=== PATIENT | male | born 1945 | race Caucasian/White ===

== ENCOUNTER 2021-12-05 14:39 | Inpatient (IN) | payer MEDICARE ==
[2021-12-05 16:20] LABS: Hemoglobin 12.1 g/dL (13.5-17.5); Mean Corpuscular Hemoglobin 30.7 pg (27.0-33.0); Mean Corpuscular Volume 90.4 fl (81.2-95.1); Platelet Count 208 10x3/uL (150-450); RBC Distribution Width 12.6 % (11.5-14.5); Red Blood Cell (RBC) Count 3.94 10x6/uL (4.32-5.72); White Blood Cell (WBC) Count 29.9 10x3/uL (3.5-10.5)
[2021-12-05 16:23] LABS: ALT (SGPT) 78 U/L (8-55); AST (SGOT) 25 U/L (5-34); Albumin 3.3 g/dL (3.4-4.8); Alkaline Phosphatase 163 U/L (40-110); Anion Gap 16 mmol/L (10-20); BUN (Urea Nitrogen) 16 mg/dL (8.4-25.7); Bilirubin, Total 1.5 mg/dL (0.2-1.2); Calc. Creatinine Clearance 0 mL/min (70-130); Calcium 8.4 mg/dL (7.8-10.44); Carbon Dioxide 27 mmol/L (23-31); Chloride 87 mmol/L (98-107); Globulin 2.4 g/dL (2.4-3.5); Glucose 124 mg/dL (83-110); Lipase 8 U/L (8-78); Magnesium 2.2 mg/dL (1.6-2.6); Potassium 4.9 mmol/L (3.5-5.1); Protein, Total 5.7 g/dL (5.8-8.1); Sodium 125 mmol/L (136-145)
[2021-12-05 16:31] LABS: Bilirubin Neg (Negative); Blood, Urine 50 (Negative); Clarity Clear (Clear); Glucose, Urine (Dipstick) Normal (Negative); Ketone, Urine 15 mg/dL (Negative); Leukocyte 25 (Negative); Nitrite Negative (Negative); Protein, Urine (Dipstick) 30 mg/dl (Neg-Trace); Urobilinogen Normal mg/dL (Less than 2)
[2021-12-05 16:49] LABS: RBC/HPF 0-3 HPF (0-3); WBC/HPF 0-3 HPF (0-3)
[2021-12-05 16:50] LABS: Bacteria/HPF Rare-Few HPF (None Seen); Mucous/LPF 4+ LPF (<2+); Squamous Epithelial 0-3 HPF (0-3)
[2021-12-05 16:52] LABS: MDiff Complete? YES
[2021-12-05 16:54] LABS: Band 4 % (5-11); Lymphocytes 3 % (21-51); Monocytes 9 % (0-10); Neutrophil 84 % (42-75); Platelet Morphology Comment Appears Adequate
[2021-12-05] MEDS ORDERED: cefTRIAXone\\ROCEPHIN 2 GM VIAL ONE (18:15)
[2021-12-05 18:55] LABS: Lactic Acid 2.4 mmol/L (0.5-2.2)
[2021-12-05] MEDS ORDERED: HYDROcodone/Acetaminophen 5/325 mg Tablet PO PRN (19:42)
[2021-12-05 20:44] LABS: Hemoglobin 12.3 g/dL (13.5-17.5); Mean Corpuscular HGB CONC 34.9 g/dL (32.0-36.0); Mean Corpuscular Hemoglobin 31.1 pg (27.0-33.0); Mean Corpuscular Volume 89.1 fl (81.2-95.1); Mean Platelet Volume 8.1 fl (7.4-10.4); Platelet Count 211 10x3/uL (150-450); RBC Distribution Width 12.5 % (11.5-14.5); Red Blood Cell (RBC) Count 3.95 10x6/uL (4.32-5.72); White Blood Cell (WBC) Count 31.2 10x3/uL (3.5-10.5)
[2021-12-05 20:57] LABS: Lactic Acid 2.1 mmol/L (0.5-2.2)
[2021-12-05] MEDS ORDERED: Vancomycin HCl 1 GM in Sodium Chloride 0.9% 250 ML 250 ML IVPB SCH (21:00)
[2021-12-05 21:01] LABS: Anion Gap 13 mmol/L (10-20); BUN (Urea Nitrogen) 12 mg/dL (8.4-25.7); Calc. Creatinine Clearance 0 mL/min (70-130); Calcium 8.3 mg/dL (7.8-10.44); Carbon Dioxide 27 mmol/L (23-31); Chloride 92 mmol/L (98-107); Glucose 108 mg/dL (83-110); Sodium 128 mmol/L (136-145)
[2021-12-05 21:11] LABS: MDiff Complete? YES
[2021-12-05 21:15] LABS: Band 4 % (5-11); Lymphocytes 2 % (21-51); Monocytes 8 % (0-10); Myelocyte 1 % (0-0); Neutrophil 85 % (42-75)
[2021-12-05 21:16] LABS: Platelet Morphology Comment Appears Adequate; RBC Morphology Normal
[2021-12-05 21:44] VITALS: BMI 22.4
[2021-12-05] MEDS: Sodium Chloride 0.9% 1,000 ML IV SCH (21:45)
[2021-12-05] MEDS: Cefepime 2 GM in Sodium Chloride 0.9% 100 ML IVPB SCH (22:00)
[2021-12-06] MEDS: Sodium Chloride 0.9% 1,000 ML IV SCH ×3 (02:40→19:21)
[2021-12-06] MEDS: VANCOMYCIN 1.25 GM/250 ML BAG 1.25 GM in Premix Bag 1 BAG IVPB SCH ×2 (06:03→18:36)
[2021-12-06 06:31] LABS: #Monocytes 1.4 10x3/uL (0.0-1.1); #Neutrophils 17.2 10x3/uL (1.5-8.4); %Basophils 0.1 % (0.0-2.0); %Eosinophils 0.1 % (0.0-6.0); %Lymphocytes 4.1 % (18.0-47.0); %Monocytes 6.9 % (0.0-10.0); %Neutrophils 87.6 % (40.0-75.0); Hemoglobin 10.7 g/dL (13.5-17.5); Mean Corpuscular HGB CONC 34.7 g/dL (32.0-36.0); Mean Corpuscular Volume 89.3 fl (81.2-95.1); Mean Platelet Volume 8.2 fl (7.4-10.4); Platelet Count 202 10x3/uL (150-450); RBC Distribution Width 12.7 % (11.5-14.5); Red Blood Cell (RBC) Count 3.45 10x6/uL (4.32-5.72); White Blood Cell (WBC) Count 19.6 10x3/uL (3.5-10.5)
[2021-12-06 06:55] LABS: ALT (SGPT) 60 U/L (8-55); AST (SGOT) 32 U/L (5-34); Albumin 2.6 g/dL (3.4-4.8); Alkaline Phosphatase 202 U/L (40-110); Anion Gap 12 mmol/L (10-20); BUN (Urea Nitrogen) 10 mg/dL (8.4-25.7); Bilirubin, Total 0.6 mg/dL (0.2-1.2); Calc. Creatinine Clearance 101 mL/min (70-130); Calcium 7.8 mg/dL (7.8-10.44); Carbon Dioxide 25 mmol/L (23-31); Chloride 95 mmol/L (98-107); Globulin 2.5 g/dL (2.4-3.5); Glucose 103 mg/dL (83-110); Potassium 4.1 mmol/L (3.5-5.1); Protein, Total 5.1 g/dL (5.8-8.1); Sodium 128 mmol/L (136-145)
[2021-12-06] MEDS: Enoxaparin Sodium 40 MG/0.4 ML SYRINGE SC SCH (09:27)
[2021-12-06] MEDS: Cefepime 2 GM in Sodium Chloride 0.9% 100 ML IVPB SCH ×2 (09:41→23:15)
[2021-12-07 05:38] LABS: ALT (SGPT) 52 U/L (8-55); AST (SGOT) 20 U/L (5-34); Albumin 2.7 g/dL (3.4-4.8); Alkaline Phosphatase 246 U/L (40-110); Anion Gap 13 mmol/L (10-20); BUN (Urea Nitrogen) 6 mg/dL (8.4-25.7); Bilirubin, Total 0.9 mg/dL (0.2-1.2); Calc. Creatinine Clearance 104 mL/min (70-130); Calcium 8.1 mg/dL (7.8-10.44); Carbon Dioxide 25 mmol/L (23-31); Chloride 97 mmol/L (98-107); Globulin 2.6 g/dL (2.4-3.5); Glucose 91 mg/dL (83-110); Protein, Total 5.3 g/dL (5.8-8.1); Sodium 131 mmol/L (136-145)
[2021-12-07 06:04] LABS: #Monocytes 1.3 10x3/uL (0.0-1.1); #Neutrophils 12.4 10x3/uL (1.5-8.4); %Basophils 0.1 % (0.0-2.0); %Eosinophils 0.2 % (0.0-6.0); %Lymphocytes 6.3 % (18.0-47.0); %Monocytes 8.7 % (0.0-10.0); Hemoglobin 10.5 g/dL (13.5-17.5); Mean Corpuscular HGB CONC 33.7 g/dL (32.0-36.0); Mean Corpuscular Hemoglobin 30.6 pg (27.0-33.0); Mean Platelet Volume 8.3 fl (7.4-10.4); Platelet Count 214 10x3/uL (150-450); RBC Distribution Width 12.8 % (11.5-14.5); Red Blood Cell (RBC) Count 3.43 10x6/uL (4.32-5.72); Thyroid Stimulating Hormone 2.6326 uIU/mL (0.35-4.94); White Blood Cell (WBC) Count 14.8 10x3/uL (3.5-10.5)
[2021-12-07] MEDS: VANCOMYCIN 1.25 GM/250 ML BAG 1.25 GM in Premix Bag 1 BAG IVPB SCH ×2 (06:30→18:09)
[2021-12-07] MEDS ORDERED: FLU VACC QS2021-22(65YR UP)/PF 240 MCG/0.7 ML SYRINGE IM ONE (07:00)
[2021-12-07] MEDS: Enoxaparin Sodium 40 MG/0.4 ML SYRINGE SC SCH (08:47)
[2021-12-07] MEDS: Cefepime 2 GM in Sodium Chloride 0.9% 100 ML IVPB SCH ×2 (08:48→21:36)
[2021-12-07 13:09] LABS: Hep C IgG Ab Non-Reactive (NonReactive); Hep C Index 0.06 S/CO (0-0.79)
[2021-12-07 15:35] LABS: Legionella Urinary Ag Negative (Negative); Strep pneumo Urine Ag NEGATIVE (NEGATIVE)
[2021-12-07] MEDS: Acetaminophen 325 MG TAB PO PRN (16:15)
[2021-12-07 17:55] LABS: Vancomycin, Trough 11.7 ug/mL
[2021-12-08] MEDS: Vancomycin HCl 1 GM in Sodium Chloride 0.9% 250 ML 250 ML IVPB SCH ×3 (02:24→18:02)
[2021-12-08] MEDS: Acetaminophen 325 MG TAB PO PRN (03:09)
[2021-12-08 05:12] LABS: ALT (SGPT) 55 U/L (8-55); AST (SGOT) 35 U/L (5-34); Albumin 2.6 g/dL (3.4-4.8); Alkaline Phosphatase 289 U/L (40-110); Anion Gap 13 mmol/L (10-20); BUN (Urea Nitrogen) 7 mg/dL (8.4-25.7); Bilirubin, Total 0.8 mg/dL (0.2-1.2); Calc. Creatinine Clearance 101 mL/min (70-130); Calcium 7.8 mg/dL (7.8-10.44); Carbon Dioxide 22 mmol/L (23-31); Chloride 96 mmol/L (98-107); Globulin 2.6 g/dL (2.4-3.5); Glucose 97 mg/dL (83-110); Magnesium 1.9 mg/dL (1.6-2.6); Potassium 3.4 mmol/L (3.5-5.1); Protein, Total 5.2 g/dL (5.8-8.1); Sodium 128 mmol/L (136-145)
[2021-12-08 05:31] LABS: #Eosinphils 0.1 10x3/uL (0.0-0.5); #Monocytes 1.4 10x3/uL (0.0-1.1); #Neutrophils 13.1 10x3/uL (1.5-8.4); %Basophils 0.1 % (0.0-2.0); %Eosinophils 0.8 % (0.0-6.0); %Lymphocytes 5.4 % (18.0-47.0); %Monocytes 8.9 % (0.0-10.0); Hemoglobin 10.3 g/dL (13.5-17.5); Mean Corpuscular HGB CONC 34.4 g/dL (32.0-36.0); Mean Corpuscular Hemoglobin 30.7 pg (27.0-33.0); RBC Distribution Width 12.8 % (11.5-14.5); Red Blood Cell (RBC) Count 3.36 10x6/uL (4.32-5.72); White Blood Cell (WBC) Count 15.6 10x3/uL (3.5-10.5)
[2021-12-08 05:34] LABS: Platelet Count 305 10x3/uL (150-450)
[2021-12-08] MEDS ORDERED: Potassium Chloride 20 MEQ TAB PO SCH (06:00)
[2021-12-08] MEDS: Sodium Chloride 0.9% 1,000 ML IV SCH ×2 (07:47→21:09)
[2021-12-08] MEDS: Potassium Chloride 20 MEQ in Premix Bag 1 BAG IVPB SCH ×2 (07:48→09:19)
[2021-12-08] MEDS: Enoxaparin Sodium 40 MG/0.4 ML SYRINGE SC SCH (07:54)
[2021-12-08] MEDS: Cefepime 2 GM in Sodium Chloride 0.9% 100 ML IVPB SCH ×2 (09:14→21:07)
[2021-12-08 17:50] LABS: Vancomycin, Trough 13.1 ug/mL
[2021-12-09] MEDS: Vancomycin HCl 1 GM in Sodium Chloride 0.9% 250 ML 250 ML IVPB SCH ×2 (01:12→10:13)
[2021-12-09 04:06] LABS: ALT (SGPT) 56 U/L (8-55); AST (SGOT) 33 U/L (5-34); Albumin 2.6 g/dL (3.4-4.8); Alkaline Phosphatase 288 U/L (40-110); Anion Gap 13 mmol/L (10-20); BUN (Urea Nitrogen) 6 mg/dL (8.4-25.7); Bilirubin, Total 0.5 mg/dL (0.2-1.2); Calc. Creatinine Clearance 107 mL/min (70-130); Carbon Dioxide 24 mmol/L (23-31); Chloride 98 mmol/L (98-107); Globulin 2.5 g/dL (2.4-3.5); Glucose 97 mg/dL (83-110); Potassium 3.6 mmol/L (3.5-5.1); Protein, Total 5.1 g/dL (5.8-8.1); Sodium 131 mmol/L (136-145)
[2021-12-09 04:07] LABS: #Eosinphils 0.2 10x3/uL (0.0-0.5); #Neutrophils 10.8 10x3/uL (1.5-8.4); %Basophils 0.2 % (0.0-2.0); %Eosinophils 1.3 % (0.0-6.0); %Lymphocytes 5.9 % (18.0-47.0); %Monocytes 7.9 % (0.0-10.0); %Neutrophils 83.7 % (40.0-75.0); Hemoglobin 9.8 g/dL (13.5-17.5); Mean Corpuscular Hemoglobin 30.3 pg (27.0-33.0); Mean Corpuscular Volume 89.2 fl (81.2-95.1); Mean Platelet Volume 7.9 fl (7.4-10.4); Platelet Count 240 10x3/uL (150-450); RBC Distribution Width 12.8 % (11.5-14.5); Red Blood Cell (RBC) Count 3.23 10x6/uL (4.32-5.72); White Blood Cell (WBC) Count 12.9 10x3/uL (3.5-10.5)
[2021-12-09 10:01] LABS: Vancomycin, Trough 17.1 ug/mL
[2021-12-09] MEDS: Enoxaparin Sodium 40 MG/0.4 ML SYRINGE SC SCH (10:12)
[2021-12-09] MEDS: Cefepime 2 GM in Sodium Chloride 0.9% 100 ML IVPB SCH (10:13)
[2021-12-09 12:26] VITALS: BP 107/64; TEMP 98.2
[2021-12-11 11:13] LABS: Hep B Surface AG-Rflx Sendout Negative (Negative); Hepatitis B Core Total Negative (Negative); Hepatitis B Surface AB-Sendout Non Reactive (.)
== END 2021-12-09 14:32 | disposition home or self-care (01) | DRG 871 ==
LOC: CSHERS 14:39 → CSHTELE 21:27 → INTOOBSV 21:27 → CSHTELE 12-06 13:43 → OBSVTOIN 12-07 10:08
PROVIDERS: ADMIT Internal Medicine; ATTEND Family Medicine
DX: A41.9 Sepsis, unspecified organism (principal); J18.9 Pneumonia, unspecified organism; N39.0 Urinary tract infection, site not specified; E87.1 Hypo-osmolality and hyponatremia; I50.32 Chronic diastolic (congestive) heart failure; E87.2 Acidosis; J98.11 Atelectasis; Z86.16 Personal history of COVID-19
CPT/HCPCS: 36415; 36416; 71045; 71260; 74177; 76700; 80053; 80202; 81003; 81015; 82533; 83605; 83690; 83735; 83880; 84100; 84145; 84443; 85025; 86140; 86704; 86705; 86706; 86707; 86803; 87040; 87070; 87081; 87086; 87149; 87205; 87340; 87350; 87449; 87899; 93005; 93306; 96365; 96367; 96372; 96376; G0378; J0692; J0696; J1650; J3370; J3480; J3490; J7050